=== PATIENT | male | born 1940 ===

== ENCOUNTER 2017-10-04 06:00 | Emergency (ER) | payer MEDICARE, MEDICAID ==
--- NOTE | 2017-10-04 06:19 | C.PDOC ---
History Of Present Illness Patient with a Hx of lower back pain presents to the ER with a complaint of lower back pain. Patient is on tramadol and muscle relaxants with no relief to pain. Patient reports pain with ambulation; denies bladder/bowel incontinence, weakness, or numbness. Time Seen by Provider: 10/04/17 06:18 Chief Complaint (Nursing): Back Pain History Per: Patient History/Exam Limitations: no limitations Onset/Duration Of Symptoms: Hrs Current Symptoms Are (Timing): Still Present Quality Of Discomfort: Unable To Describe Severity: Mild Pain Scale Rating Of: 4 Previous Symptoms: Back Pain, Chronic Pain Associated Symptoms: None Exacerbating Factor(s): Nothing Recent travel outside of the [place]: No Past Medical History Reviewed: Historical Data, Nursing Documentation, Vital Signs Vital Signs: Last Vital Signs Temp 98.6 F 10/04/17 06:17 Pulse 76 10/04/17 06:17 Resp 18 10/04/17 06:17 BP 145/80 10/04/17 06:17 Pulse Ox 97 10/04/17 06:17 - Medical History PMH: Arthritis, Benign Prostatic Hyperplasia, Fractures (L. Femoral Neck Fx. This Adm.), HTN, Pneumonia Surgical History: Pacemaker - [employer] Procedures REPLACE L HIP JT, FEMORAL W SYNTH SUB, UNCEMENT, OPEN (09/13/15) Family History: States: No Known Family Hx - Social History Hx Alcohol Use: No Hx Substance Use: No Review Of Systems Genitourinary: Negative for: Incontinence Musculoskeletal: Positive for: Back Pain Neurological: Negative for: Weakness, Numbness Physical Exam - Physical Exam Appears: Non-toxic, No Acute Distress Skin: Warm, Dry Head: Normacephalic Oral Mucosa: Moist Chest: Symmetrical Cardiovascular: Rhythm Regular Respiratory: No Rales, No Rhonchi, No Wheezing Gastrointestinal/Abdominal: Soft, No Tenderness Back: Paraspinal Tenderness (Lumbar) Neurological/Psych: Oriented x3 ED Course And Treatment Pulse Ox Interpretation: Normal Progress Note: CT lumbar spine ordered. Dilaudid administered. Disposition Counseled Patient/Family Regarding: Studies Performed, Diagnosis - Disposition Referrals: Saji Woods Jr., MD [Medical Doctor] - Disposition Time: 06:18 Condition: FAIR Forms: [email or web address] (Persian) - Clinical Impression Clinical Impression: Low back pain - Scribe Statement The provider has reviewed the documentation as recorded by the Scribe Rasta Villagomez All medical record entries made by the Scribe were at my direction and personally dictated by me. I have reviewed the chart and agree that the record accurately reflects my personal performance of the history, physical exam, medical decision making, and the department course for this patient. I have also personally directed, reviewed, and agree with the discharge instructions and disposition. Physician Patient Turnover Patient Signed Over To: Serg Davies Handoff Comments: pending ct results, reeval and dispo
[2017-10-04 06:20] VITALS: RESP 18; TEMP 98.6; O2SAT 97
[2017-10-04] MEDS ORDERED: HYDROmorphone 1 mg/ml ISec IM STA (06:21)
--- NOTE | 2017-10-04 08:07 | CT ---
PROCEDURE: CT Lumbar Spine without contrast HISTORY: back pain COMPARISON: Comparison is made to the previous x-ray of the lumbar spine dated 05/18/2017 TECHNIQUE: Axial computed tomography images were obtained of the lumbar spine without the use of intravenous contrast. Coronal and sagittal reformatted images were created and reviewed. Radiation dose: Total exam DLP = 1097.22 mGy-cm. This CT exam was performed using one or more of the following dose reduction techniques: Automated exposure control, adjustment of the mA and/or kV according to patient size, and/or use of iterative reconstruction technique. FINDINGS: VERTEBRAE: Unremarkable. No fracture. Normal alignment. DISCS/SPINAL CANAL/NEURAL FORAMINA: L1-2: There is a small osteophyte disc bulge complex associated with mild posterior ligament and facet joint hypertrophy without evidence of significant spinal or neural foraminal narrowing. L2-3: There is a small osteophyte disc bulge complex associated with mild posterior ligament and facet joint hypertrophy without evidence of significant spinal or neural foraminal narrowing. L3-4: Small broad-based disc bulge complex associated with posterior ligament and facet joint hypertrophy which resulting in mild spinal and neural foraminal narrowing. L4-5: Small disc bulge seen associated with posterior ligament and facet joint hypertrophy which resulting in mild spinal and neural foraminal narrowing. L5-S1: There is a moderate size osteophyte disc herniation complex associated with posterior ligament and facet joint hypertrophy which resulting in mild spinal and moderate neural foraminal narrowing right more than left. PARASPINAL SOFT TISSUES: Infrarenal abdominal aortic aneurysm is partially imaged in noted just above the bifurcation. Diffuse atherosclerotic disease. OTHER FINDINGS: None. IMPRESSION: Small to moderate size osteophyte disc herniation complex at L5-S1 associated with posterior ligament and facet joint hypertrophy which resulting in mild spinal and moderate neural foraminal narrowing right more than left. Multilevel small osteophyte disc bulge complex associated with posterior ligament and facet joint hypertrophy which resulting in mild spinal stenosis.
[2017-10-04 08:32] VITALS: BP 123/79; PULSE 59
== END 2017-10-04 08:56 | disposition home or self-care (01) ==
LOC: C.ER 06:00
DX: M54.5 Low back pain (principal)
CPT/HCPCS: 72131; 96372; 99284; J1170